=== PATIENT | female | born 1975 | race Caucasian/White ===

== ENCOUNTER 2021-05-07 08:59 | Emergency (ER) | payer BC, SELFPAY ==
[2021-05-07 09:01] VITALS: BP 113/80; PULSE 88; RESP 18; TEMP 37.1; O2SAT 96; BMI 29.9
--- NOTE | 2021-05-07 09:28 | XR_ITS ---
PROCEDURE: XR CHEST PORTABLE CLINICAL HISTORY: rhonchi in the right lower lung COMPARISON: No exams were available for comparison FINDINGS: The cardiomediastinal silhouette and pulmonary vascularity are within normal limits. In the right upper lobe there is a faint nodular opacity measuring 15 x 10 mm. Possibly related to summation artifact from the overlying rib and scapula. In the left lower lung zone laterally there is a wedge-shaped area of increased density asymmetric compared to the right side and may represent an area of pneumonia. This also may in part be due to summation artifact. Upright PA and lateral chest may provide further evaluation. No acute bony abnormalities. IMPRESSION: Possible right upper lobe nodule and left lower lobe area of consolidation versus summation artifacts. Upright PA and lateral chest may provide further evaluation Dictated by: Reza Franz MD 05/07/2021 10:27 Reza Franz MD in [place] 05/07/2021 10:27
[2021-05-07 09:30] VITALS: BP 112/64; PULSE 89; RESP 15; O2SAT 95
--- NOTE | 2021-05-07 09:35 | HMH.EDGENADL ---
ED Disposition Clinical Impression: COVID-19 Pneumonia Qualifiers: Laterality: bilateral Lung location: unspecified part of lung Disposition: Home, Self-Care Condition on Discharge: Good Instructions: Pneumonia-Adult Additional Instructions: Please take your antibiotics as prescribed. If your condition worsens or any other concerns for your health arise, please return to the nearest emergency department for reassessment. Otherwise, please follow-up with your primary care doctor on Monday. Prescriptions: Amoxicillin/Potassium Clav [Augmentin 875-125 Tablet] 1 tab PO Q12H #14 tab Doxycycline Monohydrate [Doxycycline Mcdonald 100mg Tab] 100 mg PO Q12 7 Days #14 tab Ondansetron [Zofran 4mg ODT] 4 mg PO TIDP PRN 3 Days #9 tab PRN Reason: Nausea Referrals: Dyllan Travis [Primary Care Provider] - - Critical Care Critical Care Time: No Attestation: On , the high probability of a clinically significant, sudden or life threatening deterioration of the following system(s) required my full and direct attention, intervention and personal management. The time I documented below is in addition to time spent performing reported procedures but includes the following listed in this critical care notation. Medical Decision Making - Jacky Inquiry Pt receiving controlled substance: No Vital Signs: 05/07/21 09:01 05/07/21 09:30 05/07/21 10:30 Temperature 98.7 F Temperature Source Oral Pulse Rate 89 92 H Pulse Rate [Right Radial] 88 Respiratory Rate 18 15 20 Blood Pressure 112/64 110/73 Blood Pressure [Right Arm] 113/80 Blood Pressure Mean 80 83 Blood Pressure Mean [Right Arm] 91 Blood Pressure Source [Right Arm] Automatic Cuff Blood Pressure Position [Right Arm] Sitting 02 Sat by Pulse Oximetry 96 95 93 L Oxygen Delivery Method Room Air - Lab Data Lab Results 05/07/21 09:49: WBC 4.4 L, RBC 5.14, Hgb 15.1, Hct 45.7, MCV 89.0, MCH 29.5, MCHC 33.1, RDW 12.3, Plt Count 130 L, MPV 7.9, Neut % (Auto) 79.0, Lymph % (Auto) 15.1, Mcdonald % (Auto) 5.7, Eos % (Auto) 0.0 L, Baso % (Auto) 0.2, Neut # (Auto) 3.4, Lymph # (Auto) 0.7, Mcdonald # (Auto) 0.3, Eos # (Auto) 0.0, Baso # (Auto) 0.0 05/07/21 09:49: Sodium 134 L, Potassium 3.4 L, Chloride 99, Carbon Dioxide 26, Anion Gap 12.4, BUN 9, Creatinine 0.50 L, Estimated Creat Clear 185, Estimated GFR 134, Est GFR ( Amer) 162, Glucose 160 H, Calcium 8.4 05/07/21 09:49: SARS-CoV-2 (PCR) Detected A, Influenza A Untype (PCR) Not detected, Influenza Type B (PCR) Not detected 05/07/21 09:49: Lipase 124 05/07/21 09:57: Urine Color Yellow, Urine Appearance Clear, Urine pH 6.5, Ur Specific Harper 1.010, Urine Protein 2+, Urine Glucose (UA) Negative, Urine Ketones Negative, Urine Blood Trace-i, Urine Nitrate Negative, Urine Bilirubin Negative, Urine Urobilinogen 1.0, Ur Leukocyte Esterase Negative, Urine RBC Occasional, Urine WBC None, Ur Squamous Epith Cells Occasional, Urine Bacteria None Result diagrams: 05/07/21 09:49 05/07/21 09:49 Orders (Tests/Meds): ED MEDICATIONS Discontinued Medications Generic Name Dose Route Start Last Admin Trade Name Freq PRN Reason Stop Dose Admin Belladonna Alkaloids 60 ml 05/07/21 09:31 05/07/21 10:23 Gi Cocktail 60ml Udc PO 05/07/21 09:32 60 ml ONCE ONE Administration Ondansetron HCl 4 mg 05/07/21 09:31 05/07/21 10:16 Ondansetron 4mg/2ml Vial IV 05/07/21 09:32 4 mg ONCE ONE Administration Medical Decision Narrative: Patient is a 45-year-old female presenting with a chief complaint of cough and dyspnea and fever in the setting of exposure to COVID-19. Differential diagnosis includes, but is not limited to, COVID-19 pneumonia, superimposed bacterial infection, pleural effusion,asthma exacerbation, DVT/PE. On initial assessment, patient is hemodynamically stable and nontoxic-appearing. She has appropriate SPO2 saturations on room air. Clinical exam is significant for diffuse crackles with si
[2021-05-07 09:57] LABS: Influenza A, PCR Not Detected (NotDetected); Influenza B, PCR Not Detected (NotDetected)
[2021-05-07 10:01] LABS: Basophils % 0.2 % (0.1-2.0); Hematocrit 45.7 % (37.0-47.0); Hemoglobin 15.1 g/dL (12.2-16.2); Lymphocytes # 0.7 K/mm3 (0.7-4.5); Lymphocytes % 15.1 % (10-50); Mean Corpuscular HGB Conc 33.1 g/dL (31.8-35.4); Mean Corpuscular Hemoglobin 29.5 pg (27.0-31.2); Mean Platelet Volume 7.9 fl (7.4-10.4); Monocytes # 0.3 K/mm3 (0.1-1.0); Monocytes % 5.7 % (1.7-9.3); Neutrophils # 3.4 K/mm3 (1.8-7.8); Platelet Count 130 K/mm3 (142-424); Red Blood Count 5.14 M/mm3 (4.20-5.40); Red Cell Distribution Width 12.3 % (11.5-17.5); White Blood Count 4.4 K/mm3 (4.8-10.8)
[2021-05-07 10:03] LABS: Chloride 99 mmol/L (98-107); Sodium 134 mmol/L (136-145)
[2021-05-07 10:04] LABS: Potassium 3.4 mmoL/L (3.5-5.1)
[2021-05-07 10:06] LABS: Lipase 124 U/L (23-300)
[2021-05-07 10:07] LABS: Anion Gap 12.4 mEq/L (5-15); Blood Urea Nitrogen 9 mg/dl (7-17); Calcium 8.4 mg/dl (8.4-10.2); Carbon Dioxide 26 mmol/L (22.0-30.0); Creatinine Clearance Estimated 185 mL/min (50-200); Estimated Glomerular Filt Rate 134 ml/min (>60); GFR (African American) 162 ML/MIN (>60); Glucose 160 mg/dl (74-100)
[2021-05-07 10:25] LABS: Microscopic, Urine URINE MICROSCOPIC (MICROSCOPIC)
[2021-05-07 10:29] LABS: Appearance,Urine CLEAR (Clear); Bilirubin,Urine Negative (Negative); Blood, Urine TRACE-I (Negative); Color,Urine YELLOW (Yellow); Glucose,Urine (UA) Negative (Negative); Ketones,Urine Negative (Negative); Leukocyte Esterase,Urine Negative (Negative); Nitrate,Urine Negative (Negative); PH,Urine 6.5 (5.0-8.5); Protein,Urine 2+ (Negative)
[2021-05-07 10:30] VITALS: BP 110/73; PULSE 92; RESP 20; O2SAT 93
[2021-05-07 10:39] LABS: Coronavirus 19, PCR Detected (NotDetected)
[2021-05-07 10:40] LABS: RBC,Urine Occasional #/hpf (0-3); Squamous Epithelial Cell,Urine Occasional #/hpf (0-5)
--- NOTE | 2021-05-07 10:51 | PC.NURSE ---
Pt is sitting up in bed resting comfortably. Will continue to monitor.
[2021-05-07 11:00] VITALS: BP 107/70; PULSE 91; O2SAT 93
[2021-05-07 11:20] VITALS: BP 107/70; PULSE 89; RESP 18; TEMP 37.3; O2SAT 100
== END 2021-05-07 11:20 | disposition home or self-care (01) ==
PROVIDERS: Emergency Provider Emergency Medicine; PCP Family Medicine
DX: U07.1 COVID-19 (principal); J12.82 Pneumonia due to coronavirus disease 2019
CPT/HCPCS: 71045; 80048; 81001; 83690; 85025; 99283; C9803; J2405; U0003; U0005

== ENCOUNTER 2021-12-24 11:22 | Emergency (ER) | payer BC, SELFPAY ==
[2021-12-24 11:30] VITALS: BP 129/77; PULSE 63; RESP 16; TEMP 36.7; O2SAT 99; BMI 29.9
--- NOTE | 2021-12-24 11:33 | XR_ITS ---
FINAL REPORT CLINICAL HISTORY: FALL- over her dog FINDINGS: RIGHT SHOULDER: 3 views of the right shoulder were obtained. There is no acute fracture or dislocation. There is mild elevation of the distal clavicle. There is no soft tissue abnormality. IMPRESSION: No acute fracture. Mild elevation of the distal clavicle that may represent mild AC joint separation. Reviewed, Interpreted and Dictated by Gio Inman III, MD Transcribed by Samson Laura Authenticated and [facility]
--- NOTE | 2021-12-24 11:33 | XR_ITS ---
FINAL REPORT CLINICAL HISTORY: FALL- over her dog landed on right side FINDINGS: RIGHT ELBOW 3 views were obtained. There is no acute fracture or dislocation. There is no joint effusion. The joint spaces are intact. There is no soft tissue abnormality. IMPRESSION: No acute process. Reviewed, Interpreted and Dictated by Gio Inman III, MD Transcribed by Samson Laura Authenticated and [facility]
--- NOTE | 2021-12-24 11:33 | XR_ITS ---
FINAL REPORT CLINICAL HISTORY: FALL- over her dog- upper rib pain FINDINGS: 3 views of the right ribs were obtained. There are no rib fractures. There is no pleural fluid collection or pneumothorax. A single view of the chest demonstrates no acute cardiopulmonary process. IMPRESSION: Unremarkable right rib series. Reviewed, Interpreted and Dictated by Gio Inman III, MD Transcribed by Samson Laura Authenticated and [facility]
--- NOTE | 2021-12-24 11:33 | XR_ITS ---
FINAL REPORT CLINICAL HISTORY: FALL- over her dog landed on right side FINDINGS: 2 views of the right humerus were obtained. There is no acute fracture or dislocation. There is mild elevation of the distal clavicle. There is no acute soft tissue abnormality. IMPRESSION: Mild elevation of the distal clavicle may represent mild AC joint separation. Reviewed, Interpreted and Dictated by Gio Inman III, MD Transcribed by Samson Laura Authenticated and [facility]
--- NOTE | 2021-12-24 11:33 | XR_ITS ---
FINAL REPORT CLINICAL HISTORY: FALL-over her dog- right sided pain FINDINGS: 2 views of the right forearm were obtained. There is no acute fracture or dislocation. The joint spaces are intact. There is no soft tissue abnormality. IMPRESSION: No acute abnormality. Reviewed, Interpreted and Dictated by Gio Inman III, MD Transcribed by Samson Laura Authenticated and [facility]
[2021-12-24 11:35] VITALS: BP 129/77; PULSE 63; RESP 16; TEMP 36.7; O2SAT 99; BMI 29.9
--- NOTE | 2021-12-24 12:12 | HMH.EDUTC ---
[facility] [place] Impression: Right arm pain Fall Qualifiers: Encounter type: initial encounter Qualified Code(s): W19.XXXA - Unspecified fall, initial encounter Right shoulder pain Qualifiers: Chronicity: acute Qualified Code(s): M25.511 - Pain in right shoulder Disposition: Home, Self-Care Condition on Discharge: Good Instructions: Contusion, Shoulder Sprain, DI for Shoulder Sprain, DI for Shoulder Pain Additional Instructions: Go home and rest. It would be best if you rested tomorrow too. No heavy lifting. Rest the extremity. Take ibuprofen for pain. I sent in a prescription to your pharmacy. Follow up with Dr. Ramesh (orthopedics). Sometimes there can be fractures that don't show up well on the first set of x-rays. There can be injuries that don't show up well on x-ray also, expecially in a shoulder. So, you should follow up if you continue to have symptoms. I put in a referral but you need to call his office and schedule an appointment. Take the oral medications as directed. The muscle relaxer (cyclobenzaprine--Flexeril) will make you drowsy, so don't drive or operate heavy machinery after taking it. Follow up with your regular doctor. GO TO THE ER FOR ANY WORSENING SYMPTOMS OR CONCERN, ESPECIALLY BOWEL OR BLADDER ISSUES, SADDLE AREA NUMBNESS, FEVER, ETC Prescriptions: Ibuprofen [Ibuprofen 800mg Tablet] 800 mg PO Q8HP PRN #30 tab PRN Reason: Moderate Pain Transmission Status: Received by [id number] Cyclobenzaprine HCl [Cyclobenzaprine 10mg Tab] 10 mg PO BIDP PRN #20 tab PRN Reason: Muscle Spasm Transmission Status: Received by [id number] Referrals: Dyllan Travis [Primary Care Provider] - Time of Disposition: 12:23 Medical Decision Making - Medical Records Medical records reviewed: No: I reviewed the patient's medical records. - Jacky Inquiry Pt receiving controlled substance: No Vital Signs: 12/24/21 11:30 12/24/21 11:35 12/24/21 12:22 Temperature 98.1 F 98.1 F 98.1 F Temperature Source Oral Oral Pulse Rate 63 Pulse Rate [Left Radial] 63 63 Respiratory Rate 16 16 16 Blood Pressure 129/77 Blood Pressure [Left Arm] 129/77 129/77 Blood Pressure Mean [Left Arm] 94 94 Blood Pressure Source [Left Arm] Automatic Cuff Automatic Cuff Blood Pressure Position [Left Arm] Sitting Sitting 02 Sat by Pulse Oximetry 99 99 Oxygen Delivery Method Room Air Room Air Orders (Tests/Meds): ED MEDICATIONS Discontinued Medications Generic Name Dose Route Start Last Admin Trade Name John PRN Reason Stop Dose Admin Ketorolac Tromethamine 60 mg 12/24/21 12:17 12/24/21 12:20 Ketorolac 60mg/2ml Vial IM 12/24/21 12:18 60 mg ONCE ONE Administration - Radiology Data #1 Image(s): Shoulder Image Reviewed: Yes I reviewed the patient's radiology image, Yes I have reviewed radiologist's interpretation [facility] [place] - General Stated complaint: ao fall 12/23, right side rib pain/shoulder Time Seen by Provider: 12/24/21 12:12 Mode of Arrival: Ambulatory Source of Information: Patient Limitations: No Limitations Description of Symptoms (Recalled from Triage Doc. by RN): PATIENT STATES SHE FELL YESTERDAY AFTER TRIPPING OVER HER DOG. SHE STATES SHE LANDED ON HER ELBOW AND C/O PAIN TO RIGHT SHOULDER AND RIGHT RIB AREA HEENT Symptoms (Recalled from RN notes): No Resp Symptoms (Recalled from RN notes): No Skin Symptoms (Recalled from RN notes): No MS Symptoms (Recalled from RN notes): Yes Functional Status (Recalled from RN notes): WNL - History of Present Illness Provider Complaint: She fell yesterday and came down on her left elbow. This caused her shoulder to be jammed up. Now she is having right shoulder and upper arm pain. She denies any chest pain, sob, neck pain, wrist or hand injury and any other injury. - Related Data Previous Rx's Medication Instructions Recorded Amoxicillin/Potassium Clav 1 tab PO Q12H #14 tab
[2021-12-24 12:22] VITALS: BP 129/77; PULSE 63; RESP 16; TEMP 36.7; O2SAT 99
== END 2021-12-24 12:30 | disposition home or self-care (01) ==
PROVIDERS: Emergency Provider Nurse Practitioner Family; PCP Family Medicine
DX: M79.601 Pain in right arm (principal); M25.511 Pain in right shoulder; W19.XXXA Unspecified fall, initial encounter; W54.8XXA Other contact with dog, initial encounter
CPT/HCPCS: 71100; 73030; 73060; 73080; 73090; 96372; 99213; G0463

== ENCOUNTER 2021-12-31 13:06 | Emergency (ER) | payer BC, SELFPAY ==
[2021-12-31 13:16] VITALS: BP 128/57; PULSE 66; RESP 17; TEMP 36.8; O2SAT 97; BMI 29.9
--- NOTE | 2021-12-31 13:23 | HMH.EDUTC ---
[facility] [place]ression: Rib pain on right side Disposition: Still a Patient Condition on Discharge: Fair Referrals: Dyllan Travis [Primary Care Provider] - Time of Disposition: 13:43 Medical Decision Making - Medical Records Medical records reviewed: No: I reviewed the patient's medical records. - Jacky Inquiry Pt receiving controlled substance: No Vital Signs: 12/31/21 13:16 Temperature 98.2 F Temperature Source Oral Pulse Rate [Left Radial] 66 Respiratory Rate 17 Blood Pressure [Right Arm] 128/57 L Blood Pressure Mean [Right Arm] 80 02 Sat by Pulse Oximetry 97 Medical Decision Narrative: She was transferred to the er for further evaluation. [facility] [place] General Stated complaint: back pain ao 12/23/21 Time Seen by Provider: 12/31/21 13:24 Description of Symptoms (Recalled from Triage Doc. by RN): patient comes in with complaints of back pain. patient states that she fell on 12/23. patient was seen hereon the with scans done. patient states that she is not getting any better, and has been unable to get an appoitment with her primary care since the incident HEENT Symptoms (Recalled from RN notes): No Resp Symptoms (Recalled from RN notes): No Skin Symptoms (Recalled from RN notes): No MS Symptoms (Recalled from RN notes): Yes Functional Status (Recalled from RN notes): wnl - History of Present Illness Provider Complaint: She is back with conitued complaints of right sided rib pain and right arm pain since falling on 12/23. - Related Data Previous Rx's Medication Instructions Recorded Amoxicillin/Potassium Clav 1 tab PO Q12H #14 tab 05/07/21 [Augmentin 875-125 Tablet] Doxycycline Monohydrate 100 mg PO Q12 7 Days #14 tab 05/07/21 [Doxycycline Screven 100mg Tab] Ondansetron [Zofran 4mg ODT] 4 mg PO TIDP PRN 3 Days #9 tab 05/07/21 Cyclobenzaprine HCl 10 mg PO BIDP PRN #20 tab 12/24/21 [Cyclobenzaprine 10mg Tab] Ibuprofen [Ibuprofen 800mg 800 mg PO Q8HP PRN #30 tab 12/24/21 Tablet] Allergies Allergy/AdvReac Type Severity Reaction Status Date / Time No Known Allergies Allergy Verified 12/31/21 13:21 - Worker's Comp Is this a Worker's Comp case?: No [facility] History - Hepatitis A Screen Attestation statement:: This patient has been screened for Hepatitis A risk factors. I have reviewed the patient's past medical history: Yes ROS Obtained: Yes All systems reviewed & no additional complaints - Constitutional Constitutional: Denies chills, Denies fever(s) - Eyes Eyes: Denies eye discharge - ENT Ears, Nose, Mouth, and Throat: Denies dizziness, Denies otalgia, Denies sore throat, Denies vertigo/dizziness - Cardiovascular Cardiovascular: Reports as per HPI - Respiratory Respiratory: Denies chest congestion, Reports cough, Denies dyspnea, Denies stridor, Denies wheezing - Gastrointestinal Gastrointestingal: Denies: abdominal pain, diarrhea, nausea, vomiting - Musculoskeletal Musculoskeletal: Reports neck pain Physical Exam - General General appearance: alert, in no apparent distress - Head Head exam: atraumatic, normocephalic, normal inspection - Eye Eye exam: Present: normal appearance, PERRL, EOMI - ENT ENT exam: Present: normal exam, normal oropharynx, mucous membranes moist, TM's normal bilaterally, normal external ear exam - Neck Neck exam: Present: normal inspection, full ROM, trachea midline. Absent: meningismus, lymphadenopathy - Chest Chest inspection: Present: normal inspection, symmetric chest wall rise. Absent: tenderness - Respiratory Respiratory exam: Present: normal lung sounds bilaterally. Absent: respiratory distress - Cardiovascular Cardiovascular exam: Present: regular rate, normal rhythm. Absent: JVD - Abdominal Exam Abdominal exam: Present: soft, normal bowel sounds. Absent: distention, tenderness, guarding - Extremities Exam Extremities exam: Present: normal inspection, full ROM, nor
[2021-12-31 13:46] VITALS: BP 124/80; PULSE 61; RESP 18; TEMP 36.8; O2SAT 98; BMI 29.9
--- NOTE | 2021-12-31 13:53 | XR_ITS ---
FINAL REPORT CLINICAL HISTORY: pain, pt stated that she fell last and the pain in her chest has stayed persistent. The pain is located more on the mid anterior right aspect of the patients chest COMPARISON: Rib x-rays dated December 24, 2021 FINDINGS: Two views of the chest were obtained. The heart size and pulmonary vascularity are within normal limits. The mediastinum is normal. No acute pulmonary abnormality is identified. There is no pneumothorax. The bony thorax is intact. IMPRESSION: No active cardiopulmonary disease. Should symptoms persist CT may be helpful to evaluate for chest wall injury. Reviewed, Interpreted and Dictated by Gio Inman III, MD Transcribed by Samson Laura Authenticated and [facility]
--- NOTE | 2021-12-31 13:53 | PC.NURSE ---
Notified rad of chest xray
--- NOTE | 2021-12-31 13:58 | HMH.EDGENADL ---
ED Disposition Clinical Impression: Acromioclavicular joint separation, type 2 Qualifiers: Encounter type: initial encounter Laterality: right Qualified Code(s): S43.101A - Unspecified dislocation of right acromioclavicular joint, initial encounter Costochondral joint sprain Qualifiers: Encounter type: initial encounter Qualified Code(s): S23.41XA - Sprain of ribs, initial encounter Disposition: Home, Self-Care Condition on Discharge: Good Instructions: DI for Acute Pain -- Adult Additional Instructions: Continue taking ibuprofen for pain. Follow-up with orthopedics, Dr. Ramesh, for right AC joint separation. Referrals: Dyllan Travis [Primary Care Provider] - Jean-Pierre Ramesh MD [Staff Physician] - - Critical Care Critical Care Time: No Attestation: On 12/31/21, the high probability of a clinically significant, sudden or life threatening deterioration of the following system(s) required my full and direct attention, intervention and personal management. The time I documented below is in addition to time spent performing reported procedures but includes the following listed in this critical care notation. Medical Decision Making - Jacky Inquiry Pt receiving controlled substance: No Vital Signs: 12/31/21 13:16 12/31/21 13:46 12/31/21 15:06 Temperature 98.2 F 98.2 F 98.3 F Temperature Source Oral Oral Oral Pulse Rate 74 Pulse Rate [Left Radial] 66 61 Respiratory Rate 17 18 16 Blood Pressure 103/62 L Blood Pressure [Right Arm] 128/57 L 124/80 Blood Pressure Mean [Right Arm] 80 94 Blood Pressure Source Automatic Cuff Blood Pressure Source [Right Arm] Automatic Cuff Blood Pressure Position Sitting Blood Pressure Position [Right Arm] Sitting 02 Sat by Pulse Oximetry 97 98 Oxygen Delivery Method Room Air Room Air - Radiology Data #1 Image(s): Chest Image Reviewed: Yes I reviewed the patient's radiology image Preliminary Findings: Normal/NAD Stable chest. No pneumonia seen. No pneumothorax or hemothorax. No rib fracture seen. Sternum appears normal on lateral chest film. Medical Decision Narrative: Review of reports from her previous x-rays shows that radiologist was concerned about the possibility of a right AC separation. Patient states she was not informed of this. I have made her aware and advised orthopedic follow-up. I feel her chest injury is a chest wall rib cage strain of the costochondral junction. Fractured sternum not suspected. Pt declines sling for her arm. General Adult HPI - General Chief complaint: PAIN Stated complaint: back pain ao 12/23/21 Time Seen by Provider: 12/31/21 13:24 Mode of Arrival: Ambulatory Limitations: No Limitations Description of Symptoms (Recalled from ER Triage Doc. by RN): c/o center chest pain after falling last . pt states that she stepped on her dog and fell hitting her right elbow and shoulder and heard a pop in her chest and since then it has been painful with bending over. Denies any other pain or injuries at this time. - History of Present Illness HPI narrative: Patient states that she fell 1 week ago when she fell over her dog. She landed in her yard on her right elbow. She said all of the force of the blow was on her elbow and it jammed her right shoulder. She also felt a pop in her right anterior chest. She was seen in the urgent treatment center here and had x-rays of her ribs and arm. She says she was told nothing was broken. She now returned to the urgent treatment center today because of persistent discomfort in her right anterior chest in the parasternal area and above her right breast. She says it reminds her of the pain she had when she had pneumonia in the past. She has had a mild cough without fever or sputum production. No hemoptysis. She also has some persistent pain on the top of her right shoulder. 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 No follow-up since h
[2021-12-31 15:06] VITALS: BP 103/62; PULSE 74; RESP 16; TEMP 36.8; O2SAT 98
== END 2021-12-31 15:07 | disposition home or self-care (01) ==
LOC: UTC 13:08 → ER 13:40
PROVIDERS: Emergency Provider Emergency Medicine; PCP Family Medicine
DX: S43.101A Unspecified dislocation of right acromioclavicular joint, initial encounter (principal); S23.41XA Sprain of ribs, initial encounter; R07.2 Precordial pain; M54.2 Cervicalgia; M54.9 Dorsalgia, unspecified; M79.601 Pain in right arm; M25.521 Pain in right elbow; M25.511 Pain in right shoulder; W01.0XXA Fall on same level from slipping, tripping and stumbling without subsequent striking against object, initial encounter
CPT/HCPCS: 71046; 99283

== ENCOUNTER 2022-10-28 14:14 | Emergency (ER) | payer BC, SELFPAY ==
[2022-10-28 14:20] VITALS: BP 136/82; PULSE 64; RESP 20; TEMP 36.4; O2SAT 97; BMI 29.9
[2022-10-28 14:30] LABS: Apearance,Urine Cloudy (Clear); Color,Urine Yellow (Yellow); Glucose,Urine (UA) Negative (Negative); Ketones,Urine Negative (Negative); Protein,Urine 1+ (Negative)
--- NOTE | 2022-10-28 14:30 | EXP.UTC ---
Discharge Plan Disposition Patient Disposition: Home, Self-Care Condition: Good Prescriptions Prescriptions: New cefdinir 300 mg capsule 300 mg PO BID Qty: 20 0RF phenazopyridine [Pyridium] 200 mg tablet 200 mg PO Q8H 2 Days Qty: 6 0RF No Action nitrofurantoin monohyd/m-cryst 100 mg capsule 100 mg PO ONCE doxycycline monohydrate 100 MG tablet 100 mg PO Q12 7 Days Qty: 14 0RF ondansetron 4 MG tablet,disintegrating 4 mg PO TIDP PRN (Reason: Nausea) 3 Days Qty: 9 0RF cyclobenzaprine 10 MG tablet 10 mg PO BIDP PRN (Reason: Muscle Spasm) Qty: 20 0RF ibuprofen 800 MG tablet 800 mg PO Q8HP PRN (Reason: Moderate Pain) Qty: 30 0RF Referrals Follow up/Referrals: Dyllan Travis [Primary Care Provider] - See instructions Activity Restrictions/Add. Instructions Additional Instructions/Restrictions: *Increase fluids. Water not Soda or Tea *Start antibiotic immediately and be sure to take as ordered for the FULL length of time although you should start to see improvement over the next 48 hours *Pyridium as needed Remember this medication will turn your urine . This is normal but it will stain what ever it gets on *You should not use Pyridium for more than 48 hours. If so , follow up with your primary physician to review urine culture and ensure that antibiotic is adequate for infection *Be SURE to follow up anytime for new or worsening symptoms with your family doctor. AND in 48 hours for urine culture results with your family doctor, if you do not have a doctor then you may call back to the [facility] for urine culture results and further treatment. We do recommend that you choose and establish care with a Primary Care Physician. ?AND follow up with them ?in 10-14 days to repeat UA to ensure infection is resolved and blood no longer present *Be sure to let your PCP know that we sent urine cultures from the [facility] so they can follow up to ensure that you area the on the correct antibiotic Call your doctor office and make appointment for 48 hours (2 days from today) ?to follow up and get the results of your urine culture and further treatment Clinical Impressions Clinical Impression: UTI symptoms Instructions Patient Instructions: Phenazopyridine Discharge ED Provider: Gissel Cardenas [facility] [place] General Stated complaint: Possible UTI Time Seen by Provider: 10/28/22 14:30 History of Present Illness Provider Complaint: Patient states that she has been having burning with urination and feeling of urgency and frequency for about 3 days Statse that today she was still having symptoms so she came in to get her urine checked Related Data Home Medications Medication Instructions Recorded Confirmed nitrofurantoin 100 mg PO ONCE 01/04/22 01/04/22 monohydrate/macrocrystals 100 mg capsule Previous Rx's Medication Instructions Recorded doxycycline monohydrate 100 mg 100 mg PO Q12 7 days #14 tabs 05/07/21 tablet ondansetron 4 mg disintegrating 4 mg PO TIDP PRN Nausea 3 days #9 05/07/21 tablet tabs cyclobenzaprine 10 mg tablet 10 mg PO BIDP PRN Muscle Spasm #20 12/24/21 tabs ibuprofen 800 mg tablet 800 mg PO Q8HP PRN Moderate Pain 12/24/21 #30 tabs cefdinir 300 mg capsule 300 mg PO BID #20 caps 10/28/22 phenazopyridine 200 mg tablet 200 mg PO Q8H pain 2 days #6 tabs 10/28/22 (Pyridium) Allergies Allergy/AdvReac Type Severity Reaction Status Date / Time No Known Allergies Allergy Verified 01/04/22 13:50 [facility] Disclaimer: The information contained in this section may have been updated after the patient was seen, as this information can be updated by other users. Social History Smoking Status: Never smoker alcohol intake: never current occupational status: employed Travel in the last 8 weeks: None ROS Obtained: Yes All systems reviewed & no additional complaints except as documented and Yes Systems reviewed as appropriate & no additional complaints except as doc
[2022-10-28 14:31] LABS: Bilirubin,Urine 1+ (Negative); Blood, Urine 1+ (Negative); UTC Leukocyte Esterase,Urine Negative (Negative); UTC Nitrate,Urine Negative (Negative); Urobilinogen,Urine 0.2 EU/dl (0.2)
[2022-10-28 14:37] VITALS: BP 136/82; PULSE 64; RESP 20; TEMP 36.4; O2SAT 97
== END 2022-10-28 14:45 | disposition home or self-care (01) ==
PROVIDERS: Emergency Provider Nurse Practitioner; PCP Family Medicine
DX: R30.0 Dysuria (principal)
CPT/HCPCS: 81003; 87086; 87088; 87186; 99212; 99214; G0463

== ENCOUNTER 2022-12-02 17:03 | Emergency (ER) | payer BC, SELFPAY ==
[2022-12-02 17:10] VITALS: BP 135/65; PULSE 53; RESP 20; TEMP 36.8; O2SAT 100; BMI 29.9
--- NOTE | 2022-12-02 17:10 | EXP.UTC ---
Discharge Plan Disposition Patient Disposition: Home, Self-Care Condition: Good Prescriptions Prescriptions: New mupirocin 2 % ointment 1 applic topical TID 7 Days Qty: 15 0RF amoxicillin-pot clavulanate 875-125 mg Tablet 1 tab PO Q12H Qty: 20 0RF Referrals Follow up/Referrals: Dyllan Travis [Primary Care Provider] - See instructions Activity Restrictions/Add. Instructions Additional Instructions/Restrictions: Keep the wounds clean and dry. Follow up with your regular doctor. Take the antibiotics as directed and apply the topical antibiotics as directed. Make sure you stay in contact with the health department regarding the health of the dog. Watch the puncture wounds for signs of worsening infection, such as worsening redness, drainage, swelling, etc. GO TO THE ER FOR ANY WORSENING SYMPTOMS Clinical Impressions Clinical Impression: Dog bite of right hand Instructions Patient Instructions: Diphtheria, Tetanus, and Pertussis (DTaP) Vaccine, DI for Dog Bite Discharge ED Provider: Fabricio Cruz [facility] General Stated complaint: AO 12/02, dog bite, thumb lac Time Seen by Provider: 12/02/22 17:09 History of Present Illness Provider Complaint: She was bit by a dog while she was grooming it today. She was bit on her right thumb. There are 2 small open wounds there. She states that her tetanus immunization is not up to date. Related Data Previous Rx's Medication Instructions Recorded amoxicillin 875 mg-potassium 1 tab PO Q12H #20 tabs 12/02/22 clavulanate 125 mg tablet mupirocin 2 % topical ointment 1 applic topical TID 7 days #15 12/02/22 grams Allergies Allergy/AdvReac Type Severity Reaction Status Date / Time No Known Allergies Allergy Verified 01/04/22 13:50 [facility] Disclaimer: The information contained in this section may have been updated after the patient was seen, as this information can be updated by other users. Social History Smoking Status: Never smoker alcohol intake: never current occupational status: employed Travel in the last 8 weeks: None ROS Obtained: Yes All systems reviewed & no additional complaints except as documented Constitutional Constitutional: Denies chills and Denies fever(s) Eyes Eyes: Denies eye discharge ENT Ears, Nose, Mouth, and Throat: Denies dizziness, Denies otalgia and Denies sore throat Cardiovascular Cardiovascular: Denies chest pain Respiratory Respiratory: Denies shortness of breath, Denies chest congestion, Denies cough, Denies stridor and Denies wheezing Gastrointestinal Gastrointestingal: Denies nausea or vomiting Musculoskeletal Musculoskeletal: Reports system reviewed and no additional complaints, except as documented and Denies arthralgias Integumentary/Breasts Skin/Breast: Reports as per HPI Neurologic Neurologic: Denies dizziness and Denies paresthesias Allergic/Immunologic Allergic/Immunologic: Denies wheezing Physical Exam General General appearance: alert and in no apparent distress Head Head exam: atraumatic, normocephalic and normal inspection Eye Eye exam: Present normal appearance, PERRL and EOMI ENT ENT exam: Present normal exam, normal oropharynx, mucous membranes moist, TM's normal bilaterally and normal external ear exam Neck Neck exam: Present normal inspection, full ROM and trachea midline; Absent meningismus or lymphadenopathy Chest Chest inspection: Present normal inspection and symmetric chest wall rise; Absent tenderness Respiratory Respiratory exam: Present normal lung sounds bilaterally; Absent respiratory distress Cardiovascular Cardiovascular exam: Present regular rate and normal rhythm; Absent JVD Abdominal Exam Abdominal exam: Present soft and normal bowel sounds; Absent distention, tenderness or guarding Extremities Exam Extremities exam: Present normal inspection, full ROM and normal capillary refill; Absent calf tendernes
[2022-12-02 17:30] VITALS: BP 135/65; PULSE 53; RESP 20; TEMP 36.8; O2SAT 100
== END 2022-12-02 17:35 | disposition home or self-care (01) ==
PROVIDERS: Emergency Provider Nurse Practitioner Family; PCP Family Medicine
DX: S61.011A Laceration without foreign body of right thumb without damage to nail, initial encounter (principal); Z23 Encounter for immunization; W54.0XXA Bitten by dog, initial encounter
CPT/HCPCS: 90471; 90715; 96372; 99212; 99214; G0463

== ENCOUNTER 2023-01-09 13:23 | Emergency (ER) | payer BC, SELFPAY ==
[2023-01-09 13:24] VITALS: BP 122/73; PULSE 62; RESP 19; TEMP 36.8; O2SAT 99; BMI 30.2
--- NOTE | 2023-01-09 13:34 | XR_ITS ---
FINAL REPORT CLINICAL HISTORY: Acute right foot pain after fall COMPARISON: None FINDINGS: RIGHT FOOT: Three views of the right foot were obtained. There is no acute fracture or dislocation. The joint spaces are intact. There is no soft tissue abnormality. IMPRESSION: No acute bony abnormality. Reviewed, Interpreted and Dictated by Gio Inman III, MD Transcribed by Lacy Bass Authenticated and [facility]
--- NOTE | 2023-01-09 13:34 | XR_ITS ---
FINAL REPORT CLINICAL HISTORY: Acute right ankle pain after fall COMPARISON: None FINDINGS: LEFT ANKLE: Three views of the left ankle were obtained. There is no acute fracture or dislocation. Mild degenerative changes. Ankle mortise is intact. There is soft tissue swelling. IMPRESSION: Soft tissue swelling without acute bony abnormality. Reviewed, Interpreted and Dictated by Gio Inman III, MD Transcribed by Lacy Bass Authenticated and [facility]
--- NOTE | 2023-01-09 13:34 | XR_ITS ---
FINAL REPORT CLINICAL HISTORY: Acute left knee pain after fall COMPARISON: none FINDINGS: LEFT KNEE: Three views of the left knee were obtained. There is no acute fracture or dislocation. Visualized joint spaces are normally aligned. There is no joint effusion. Soft tissues are unremarkable. IMPRESSION: No acute bony abnormality. Reviewed, Interpreted and Dictated by Gio Inman III, MD Transcribed by Lacy Bass Authenticated and [facility]
--- NOTE | 2023-01-09 14:01 | EXP.UTC ---
Discharge Plan Disposition Patient Disposition: Home, Self-Care Condition: Good Prescriptions Prescriptions: New ibuprofen [IBU] 800 mg tablet 800 mg PO Q8HP PRN (Reason: Moderate Pain) Qty: 30 0RF No Action mupirocin 2 % ointment 1 applic topical TID 7 Days Qty: 15 0RF amoxicillin-pot clavulanate 875-125 mg Tablet 1 tab PO Q12H Qty: 20 0RF Referrals Follow up/Referrals: Juan Daniel Torres JR, MD [Physician] - See instructions Dyllan Travis [Primary Care Provider] - See instructions Activity Restrictions/Add. Instructions Additional Instructions/Restrictions: Rest the extremity, apply ice for 15 minutes as tolerated three or four times per day, Wear the alley wrap for compression, Elevate the extremity as tolerated while you are resting. Take ibuprofen for pain. I sent in a prescription to your pharmacy. Follow up with Dr. Torres (podiatry). Sometimes there can be fractures that don't show up well on the first set of x-rays. So, you should follow up if you continue to have symptoms. I put in a referral but you need to call her office and schedule an appointment. Follow up with your regular doctor. GO TO THE ER FOR ANY WORSENING SYMPTOMS Clinical Impressions Clinical Impression: Left knee pain, Ankle pain, right, Foot pain, right Instructions Patient Instructions: Ankle Sprain, DI for Knee Sprain, DI for Ankle Sprain Discharge ED Provider: Fabricio Cruz [facility] HPI General Stated complaint: Fall@home 01/07 RT ankle pain LT knee pain Mode of Arrival: Ambulatory Source of Information: Patient Limitations: No Limitations Time Seen by Provider: 01/09/23 13:58 HEENT Symptoms (Recalled from RN notes): No Resp Symptoms (Recalled from RN notes): No Skin Symptoms (Recalled from RN notes): No MS Symptoms (Recalled from RN notes): Yes Functional Status (Recalled from RN notes): wnl History of Present Illness Provider Complaint: Patient reports falling on 01/07 and injuring her right foot/ankle and left knee. Related Data Previous Rx's Medication Instructions Recorded amoxicillin 875 mg-potassium 1 tab PO Q12H #20 tabs 12/02/22 clavulanate 125 mg tablet mupirocin 2 % topical ointment 1 applic topical TID 7 days #15 12/02/22 grams ibuprofen 800 mg tablet (IBU) 800 mg PO Q8HP PRN Moderate Pain 01/09/23 #30 tabs Allergies Allergy/AdvReac Type Severity Reaction Status Date / Time No Known Allergies Allergy Verified 01/04/22 13:50 Worker's Comp Is this a Worker's Comp case?: No [facility] Disclaimer: The information contained in this section may have been updated after the patient was seen, as this information can be updated by other users. Social History Smoking Status: Never smoker alcohol intake: never current occupational status: employed Travel in the last 8 weeks: None ROS Obtained: Yes All systems reviewed & no additional complaints except as documented Constitutional Constitutional: Denies chills and Denies fever(s) Eyes Eyes: Denies eye discharge ENT Ears, Nose, Mouth, and Throat: Denies dizziness, Denies otalgia and Denies sore throat Cardiovascular Cardiovascular: Denies chest pain Respiratory Respiratory: Denies shortness of breath, Denies chest congestion, Denies cough, Denies stridor and Denies wheezing Gastrointestinal Gastrointestingal: Denies nausea or vomiting Musculoskeletal Musculoskeletal: Reports as per HPI Integumentary/Breasts Skin/Breast: Denies rash Neurologic Neurologic: Denies dizziness and Denies paresthesias Allergic/Immunologic Allergic/Immunologic: Denies wheezing Physical Exam General General appearance: alert and in no apparent distress Head Head exam: atraumatic, normocephalic and normal inspection Eye Eye exam: Present normal appearance, PERRL and EOMI ENT ENT exam: Present normal exam, normal oropharynx, mucous membranes moist, TM's normal bilaterally and normal external
[2023-01-09 14:42] VITALS: BP 122/73; PULSE 62; RESP 19; TEMP 36.8; O2SAT 99
== END 2023-01-09 14:43 | disposition home or self-care (01) ==
PROVIDERS: Emergency Provider Nurse Practitioner Family; PCP Family Medicine
DX: M25.562 Pain in left knee (principal); M25.571 Pain in right ankle and joints of right foot; W19.XXXA Unspecified fall, initial encounter
CPT/HCPCS: 73562; 73610; 73630; 99212; 99214; G0463

== ENCOUNTER 2024-02-07 16:24 | Emergency (ER) | payer BC, SELFPAY ==
[2024-02-07 16:26] VITALS: BP 157/98; PULSE 78; RESP 18; TEMP 36.5; O2SAT 98; BMI 31.6
--- NOTE | 2024-02-07 16:34 | ED_ITS ---
<Statement entered by Sophia Bryant MD - 02/07/24 19:45> I was consulted by the AAYKA, and we discussed the complexity of problems being addressed. I approved the treatment and management plan for this patient's care in the emergency department, thus performing a substantial portion of the medical decision making. Sophia Bryant MD Discharge Plan Disposition Patient Disposition: Home, Self-Care Condition: Good Prescriptions Prescriptions: No Action mupirocin 2 % ointment 1 applic topical TID 7 Days Qty: 15 0RF amoxicillin-pot clavulanate 875-125 mg Tablet 1 tab PO Q12H Qty: 20 0RF ibuprofen [IBU] 800 mg tablet 800 mg PO Q8HP PRN (Reason: Moderate Pain) Qty: 30 0RF Referrals Follow up/Referrals: Dyllan Travis [Primary Care Provider] - See instructions Activity Restrictions/Add. Instructions Additional Instructions/Restrictions: Please follow-up with your PCP for referral to neurology for more advanced headache evaluation. Return to the ER for any worsening signs or symptoms as needed. Clinical Impressions Clinical Impression: Atypical chest pain Migraine Qualifiers: Migraine type: unspecified Status migrainosus presence: without status migrainosus Intractability: not intractable Qualified Code(s): G43.909 - Migraine, unspecified, not intractable, without status migrainosus Instructions Patient Instructions: DI for Migraine, DI for Atypical Chest Pain Print Language Print Language: Vietnamese Discharge ED Provider: Sophia Bryant General Adult HPI <CHRISTOPHER Sands - Last Filed: 02/07/24 19:10> General Chief complaint: Chest Pain Stated complaint: chest pain Time Seen by Provider: 02/07/24 16:34 Mode of Arrival: Ambulatory Source of Information: Patient Limitations: No Limitations Description of Symptoms (Recalled from ER Triage Doc. by RN): pt states she awoke with chest pain this am. pt states she is having L sided chest pain that is tight in nature, radiates down her L arm, and 7/10. pt also reports tingling in her face and dizziness. History of Present Illness HPI narrative: Patient presents for evaluation of left-sided chest pain that radiates to her back. Patient states she woke this morning feeling off . That is described as a swimming sensation in her head but no focal neurologic deficits. Then progressed to feeling chest tightness and pressure on the left anterior chest that radiated to her left shoulder blade. She denies any recent illness or injury. She does have a history of migraines but has never experienced a like this before. She denies chest pain fever chills hemoptysis hematochezia melena nausea vomit diarrhea. She is not on control and has had a hysterectomy. She is a non-smoker. Related Data Previous Rx's ?Medication ?Instructions ?Recorded amoxicillin 875 mg-potassium 1 tab PO Q12H #20 tabs 12/02/22 clavulanate 125 mg tablet mupirocin 2 % topical ointment 1 applic topical TID 7 days #15 12/02/22 grams ibuprofen 800 mg tablet (IBU) 800 mg PO Q8HP PRN Moderate Pain 01/09/23 #30 tabs Allergies Allergy/AdvReac Type Severity Reaction Status Date / Time No Known Allergies Allergy Verified 02/07/24 16:33 PFS <CHRISTOPHER Sands - Last Filed: 02/07/24 19:10> [facility], [facility] Disclaimer: The information contained in this section may have been updated after the patient was seen, as this information can be updated by other users. Social History Smoking Status: Never smoker alcohol intake: never current occupational status: employed Travel in the last 8 weeks: None <CHRISTOPHER Sands - Last Filed: 02/07/24 19:10> ROS Obtained: Yes Systems reviewed as appropriate & no additional complaints except as documented Physical Exam <CHRISTOPHER Sands - Last Filed: 02/07/24 19:10> General General appearance: alert and in no apparent distress Head Head exam: atraumatic and normocephalic Eye Eye exam: Present normal appearance, PERRL and EOMI ENT ENT exam: Present normal exam, normal oropharynx and mucous membranes moist Neck Neck exam: Present normal inspection and full ROM; Absent tenderness Chest Chest inspection: Present normal inspection and symmetric chest wall rise; Absent tenderness Respiratory Respiratory exam: Present normal lung sounds bilaterally and respiratory distress; Absent wheezes Cardiovascular Cardiovascular exam: Present regular rate and normal rhythm Abdominal Exam Abdominal exam: Present soft and normal bowel sounds; Absent tenderness Back Exam Back exam: Present normal inspection and full ROM; Absent tenderness Neurological Exam Neurological exam: Present alert, oriented X3, CN II-XII intact and normal gait; Absent motor sensory deficit Psychiatric Psychiatric exam: Present normal affect and normal mood Skin Skin exam: Present warm, dry and intact Medical Decision Making <CHRISTOPHER Sands - Last Filed: 02/07/24 19:10> Medical Records Medical records reviewed: Yes I reviewed the patient's medical records. Jacky Inquiry Pt receiving controlled substance: No Vital Signs: 02/07/24 16:26 02/07/24 16:39 02/07/24 17:00 Temperature 97.7 F Temperature Source Oral Pulse Rate 57 L 59 L Pulse Rate [Left] 78 Respiratory Rate 18 12 13 Blood Pressure 145/84 H 128/78 Blood Pressure [Right Arm] 157/98 H Blood Pressure Mean [Right Arm] 117 Blood Pressure Source Blood Pressure Source [Right Arm] Automatic Cuff Blood Pressure Position Blood Pressure Position [Right Arm] Sitting 02 Sat by Pulse Oximetry 98 98 97 Oxygen Delivery Method Room Air 02/07/24 17:11 02/07/24 19:25 Temperature 98.0 F Temperature Source Oral Pulse Rate 72 75 Pulse Rate [Left] Respiratory Rate 12 18 Blood Pressure 154/82 H 150/80 H Blood Pressure [Right Arm] Blood Pressure Mean [Right Arm] Blood Pressure Source Automatic Cuff Blood Pressure Source [Right Arm] Blood Pressure Position Supine Blood Pressure Position [Right Arm] 02 Sat by Pulse Oximetry 100 Oxygen Delivery Method Room Air Lab Data Lab results reviewed: Yes I reviewed the patient's lab results. Lab Results 02/07/24 16:38: WBC 7.7, RBC 4.76, Hgb 13.9, Hct 43.6, MCV 91.5, MCH 29.1, MCHC 31.8, RDW 13.7, Plt Count 190, MPV 8.4, Neut % (Auto) 64.0, Lymph % (Auto) 27.9, Callahan % (Auto) 5.9, Eos % (Auto) 1.4, Baso % (Auto) 0.8, Neut # (Auto) 5.0, Lymph # (Auto) 2.2, Callahan # (Auto) 0.5, Eos # (Auto) 0.1, Baso # (Auto) 0.1, Sodium 139, Potassium 3.8, Chloride 107, Carbon Dioxide 28, Anion Gap 7.8, BUN 12, Creatinine 0.70, Estimated Creat Clear 135, Estimated GFR 90, Est GFR ( Amer) 109, Glucose 102 H, Calcium 9.1, Total Bilirubin 0.4, AST 30, ALT 25, Alkaline Phosphatase 76, Troponin I < 0.01, Total Protein 6.5, Albumin 3.9, Globulin 2.6, Albumin/Globulin Ratio 1.5, TSH 0.58, Free T4 Index 1.9 L, Thyroxine (T4) 6.1, T3 Uptake 31 02/07/24 16:38 02/07/24 16:38 Orders (Tests/Meds): ED MEDICATIONS Discontinued Medications Generic Name Dose Route Start Last Admin Trade Name Freq PRN Reason Stop Dose Admin Acetaminophen 1,000 mg 02/07/24 16:37 02/07/24 16:50 Acetaminophen 1,000mg/100ml Vial IV 02/07/24 16:38 1,000 mg ONCE ONE Administration Dexamethasone Sodium Phosphate 10 mg 02/07/24 16:37 02/07/24 18:36 Dexamethasone 4mg/Ml 5ml Mdv IV 02/07/24 16:38 10 mg ONCE ONE Administration Diphenhydramine HCl 50 mg 02/07/24 16:45 02/07/24 17:01 Diphenhydramine 50mg/Ml Vial IV 02/07/24 16:46 50 mg ONCE ONE Administration Iopamidol 190 ml 02/07/24 17:45 02/07/24 17:47 Iopamidol-370 (76%);100ml Bottle IV 02/07/24 17:46 190 ml ONCE ONE Administration Ketorolac Tromethamine 15 mg 02/07/24 16:45 02/07/24 17:16 Ketorolac 30mg/Ml Vial IV 02/07/24 16:46 15 mg ONCE ONE Administration Methocarbamol 500 mg 02/07/24 16:45 02/07/24 17:03 Methocarbamol 500mg Tablet PO 02/07/24 16:46 500 mg ONCE ONE Administration Ondansetron HCl 4 mg 02/07/24 16:37 02/07/24 16:51 Ondansetron 4mg/2ml Vial IV 02/07/24 16:38 4 mg ONCE ONE Administration Prochlorperazine Edisylate 10 mg 02/07/24 16:45 02/07/24 18:06 Prochlorperazine 10mg/2ml Vial IV 02/07/24 16:46 Not Given ONCE ONE Sodium Chloride 10 ml 02/07/24 17:45 02/07/24 17:47 Sodium Chloride 0.9% 10ml Syr (Rad Only) IV 02/07/24 17:46 10 ml ONCE ONE Administration Sodium Chloride 50 ml 02/07/24 17:45 02/07/24 17:47 0.9 % Sodium Chloride 50 Ml Vial IV 02/07/24 17:46 50 ml ONCE ONE Administration Sodium Chloride 50 ml 02/07/24 17:45 02/07/24 17:47 0.9 % Sodium Chloride 50 Ml Vial IV 02/07/24 17:46 50 ml ONCE ONE Administration ORDERS Category Date Time Status CT angio chest - dissection Stat Cat Scan 02/07/24 16:[address] angio head Stat Cat Scan 02/07/24 16:[address] angio neck Stat Cat Scan 02/07/24 16:37 Completed CBC w/Auto Diff [Complete Blood Count Auto Diff] Stat Lab 02/07/24 16:38 Completed CMP [Comprehensive Metabolic Panel] Stat Lab 02/07/24 16:38 Completed Thyroid Panel Stat Lab 02/07/24 16:38 Completed Trop I [Troponin I] Stat Lab 02/07/24 16:38 Completed Troponin I Q3H Lab 02/07/24 19:45 Ordered Troponin I Q3H Lab 02/07/24 22:45 Ordered Medical Decision Narrative: In summary patient is a 48-year-old female who presents to the emergency department for evaluation of chest pain and paresthesia. Patient is hemodynamically stable upon arrival, afebrile. Physical exam is remarkable for a Glascow coma score 15 with no focal neurologic deficits or findings, cranial nerves II through XII are intact grossly to exam, breath sounds are clear and equal bilaterally to the bases with adventitious sounds, chest pain is not reproducible on physical exam and her heart sounds are normal and bedside EKG shows sinus rhythm. Differential diagnosis includes complex migraine versus dissection versus PE etc. Initial workup will be conducted with hematologic labs CTA of the head neck and chest. Initial interventions include crystalloid bolus Tyleno and migraine cocktail. l initial workup reviewed by me shows that her hematologic labs are nonactionable and my informal interpretation of her imaging shows no acute processes prior to radiology read. Upon repeat evaluation patient had a paradoxical panic reaction after administration of Benadryl however she recovered without intervention while we were at the bedside. Given this patient was reassessed and she now has had resolution of her chest pain and paresthesias and headache symptoms. Given this we have essentially ruled out any serious or life-threatening conditions and she is appropriate for discharge with recommendations to follow-up with her PCP for referral to to neurology for further complex headache workup. <Sophia Bryant MD - Last Filed: 02/07/24 19:45> Vital Signs: 02/07/24 16:26 02/07/24 16:39 02/07/24 17:00 Temperature 97.7 F Temperature Source Oral Pulse Rate 57 L 59 L Pulse Rate [Left] 78 Respiratory Rate 18 12 13 Blood Pressure 145/84 H 128/78 Blood Pressure [Right Arm] 157/98 H Blood Pressure Mean [Right Arm] 117 Blood Pressure Source Blood Pressure Source [Right Arm] Automatic Cuff Blood Pressure Position Blood Pressure Position [Right Arm] Sitting 02 Sat by Pulse Oximetry 98 98 97 Oxygen Delivery Method Room Air 02/07/24 17:11 02/07/24 19:25 Temperature 98.0 F Temperature Source Oral Pulse Rate 72 75 Pulse Rate [Left] Respiratory Rate 12 18 Blood Pressure 154/82 H 150/80 H Blood Pressure [Right Arm] Blood Pressure Mean [Right Arm] Blood Pressure Source Automatic Cuff Blood Pressure Source [Right Arm] Blood Pressure Position Supine Blood Pressure Position [Right Arm] 02 Sat by Pulse Oximetry 100 Oxygen Delivery Method Room Air Lab Data Lab Results 02/07/24 16:38: WBC 7.7, RBC 4.76, Hgb 13.9, Hct 43.6, MCV 91.5, MCH 29.1, MCHC 31.8, RDW 13.7, Plt Count 190, MPV 8.4, Neut % (Auto) 64.0, Lymph % (Auto) 27.9, Callahan % (Auto) 5.9, Eos % (Auto) 1.4, Baso % (Auto) 0.8, Neut # (Auto) 5.0, Lymph # (Auto) 2.2, Callahan # (Auto) 0.5, Eos # (Auto) 0.1, Baso # (Auto) 0.1, Sodium 139, Potassium 3.8, Chloride 107, Carbon Dioxide 28, Anion Gap 7.8, BUN 12, Creatinine 0.70, Estimated Creat Clear 135, Estimated GFR 90, Est GFR ( Amer) 109, Glucose 102 H, Calcium 9.1, Total Bilirubin 0.4, AST 30, ALT 25, Alkaline Phosphatase 76, Troponin I < 0.01, Total Protein 6.5, Albumin 3.9, Globulin 2.6, Albumin/Globulin Ratio 1.5, TSH 0.58, Free T4 Index 1.9 L, Thyroxine (T4) 6.1, T3 Uptake 31 Orders (Tests/Meds): ED MEDICATIONS Discontinued Medications Generic Name Dose Route Start Last Admin Trade Name Sulaimanq PRN Reason Stop Dose Admin Acetaminophen 1,000 mg 02/07/24 16:37 02/07/24 16:50 Acetaminophen 1,000mg/100ml Vial IV 02/07/24 16:38 1,000 mg ONCE ONE Administration Dexamethasone Sodium Phosphate 10 mg 02/07/24 16:37 02/07/24 18:36 Dexamethasone 4mg/Ml 5ml Mdv IV 02/07/24 16:38 10 mg ONCE ONE Administration Diphenhydramine HCl 50 mg 02/07/24 16:45 02/07/24 17:01 Diphenhydramine 50mg/Ml Vial IV 02/07/24 16:46 50 mg ONCE ONE Administration Iopamidol 190 ml 02/07/24 17:45 02/07/24 17:47 Iopamidol-370 (76%);100ml Bottle IV 02/07/24 17:46 190 ml ONCE ONE Administration Ketorolac Tromethamine 15 mg 02/07/24 16:45 02/07/24 17:16 Ketorolac 30mg/Ml Vial IV 02/07/24 16:46 15 mg ONCE ONE Administration Methocarbamol 500 mg 02/07/24 16:45 02/07/24 17:03 Methocarbamol 500mg Tablet PO 02/07/24 16:46 500 mg ONCE ONE Administration Ondansetron HCl 4 mg 02/07/24 16:37 02/07/24 16:51 Ondansetron 4mg/2ml Vial IV 02/07/24 16:38 4 mg ONCE ONE Administration Prochlorperazine Edisylate 10 mg 02/07/24 16:45 02/07/24 18:06 Prochlorperazine 10mg/2ml Vial IV 02/07/24 16:46 Not Given ONCE ONE Sodium Chloride 10 ml 02/07/24 17:45 02/07/24 17:47 Sodium Chloride 0.9% 10ml Syr (Rad Only) IV 02/07/24 17:46 10 ml ONCE ONE Administration Sodium Chloride 50 ml 02/07/24 17:45 02/07/24 17:47 0.9 % Sodium Chloride 50 Ml Vial IV 02/07/24 17:46 50 ml ONCE ONE Administration Sodium Chloride 50 ml 02/07/24 17:45 02/07/24 17:47 0.9 % Sodium Chloride 50 Ml Vial IV 02/07/24 17:46 50 ml ONCE ONE Administration ORDERS Category Date Time Status CT angio chest - dissection Stat Cat Scan 02/07/24 16:[address] angio head Stat Cat Scan 02/07/24 16:[address] angio neck Stat Cat Scan 02/07/24 16:37 Completed CBC w/Auto Diff [Complete Blood Count Auto Diff] Stat Lab 02/07/24 16:38 Completed CMP [Comprehensive Metabolic Panel] Stat Lab 02/07/24 16:38 Completed Thyroid Panel Stat Lab 02/07/24 16:38 Completed Trop I [Troponin I] Stat Lab 02/07/24 16:38 Completed Troponin I Q3H Lab 02/07/24 19:45 Ordered Troponin I Q3H Lab 02/07/24 22:45 Ordered Medical Decision Narrative: In summary patient is a 48-year-old female who presents to the emergency department for evaluation of chest pain and paresthesia. Patient is hemodynamically stable upon arrival, afebrile. Physical exam is remarkable for a Glascow coma score 15 with no focal neurologic deficits or findings, cranial nerves II through XII are intact grossly to exam, breath sounds are clear and equal bilaterally to the bases with adventitious sounds, chest pain is not reproducible on physical exam and her heart sounds are normal and bedside EKG shows sinus rhythm. Differential diagnosis includes complex migraine versus dissection versus PE etc. Initial workup will be conducted with hematologic labs CTA of the head neck and chest. Initial interventions include crystalloid bolus Tyleno and migraine cocktail. l initial workup reviewed by me shows that her hematologic labs are nonactionable and my informal interpretation of her imaging shows no acute processes prior to radiology read. Upon repeat evaluation patient had a paradoxical panic reaction after administration of Benadryl however she recovered without intervention while we were at the bedside. No findings of allergic reaction or anaphylaxis. Given this patient was reassessed and she now has had resolution of her chest pain and paresthesias and headache symptoms. Given this we have essentially ruled out any serious or life-threatening conditions and she is appropriate for discharge with recommendations to follow-up with her PCP for referral to to neurology for further complex headache workup. Critical Care <CHRISTOPHER Sands - Last Filed: 02/07/24 19:10> Critical Care Time Critical Care Time: No
--- NOTE | 2024-02-07 16:37 | CT_ITS ---
PROCEDURE INFORMATION: Exam: CTA Neck With Contrast Exam date and time: 02/07/2024 5:39 PM Age: 48 years old Clinical indication: Pain; Headache; Additional info: Left-sided headache TECHNIQUE: Imaging protocol: Computed tomographic angiography of the neck with contrast. Exam focused on the cervical segments of the vasculature. 3D rendering (Not supervised by radiologist): MIP and/or 3D reconstructed images were created by the technologist. Radiation optimization: All CT scans at this facility use at least one of these dose optimization techniques: automated exposure control; mA and/or kV adjustment per patient size (includes targeted exams where dose is matched to clinical indication); or iterative reconstruction. Contrast material: ISOVUE; Contrast volume: 100 ml; Contrast route: INTRAVENOUS (IV); COMPARISON: CT ANGIO HEAD 02/07/2024 5:39 PM FINDINGS: Right common carotid artery: No stenosis. No dissection or occlusion. Right internal carotid artery: No stenosis of the extracranial segment. No dissection or occlusion. Right external carotid artery: No occlusion or stenosis of the origin. Left common carotid artery: No stenosis. No dissection or occlusion. Left internal carotid artery: No stenosis of the extracranial segment. No dissection or occlusion. Left external carotid artery: No occlusion or stenosis of the origin. Right vertebral artery: No stenosis. No dissection or occlusion. Left vertebral artery: No stenosis. No dissection or occlusion. Thyroid: Heterogeneous multinodular left thyroid gland. Soft tissues: Normal. No significant soft tissue swelling. Bones/joints: No acute fracture. IMPRESSION: 1. No stenosis. No acute dissection. 2. Heterogeneous multinodular left thyroid gland. Recommend correlation with ultrasound. REFERENCES: NASCET CRITERIA. The degree of stenosis in the cervical segment of the internal carotid artery is based on NASCET criteria. Normal is no stenosis. Mild is less than 50% stenosis. Moderate is 50-69% stenosis. Severe is 70% to 99% stenosis. Total occlusion is no detectable patent lumen.
--- NOTE | 2024-02-07 16:37 | CT_ITS ---
PROCEDURE INFORMATION: Exam: CTA Head With Contrast, Arteriography Exam date and time: 02/07/2024 5:39 PM Age: 48 years old Clinical indication: Pain; Headache; Additional info: Left-sided headache TECHNIQUE: Imaging protocol: Computed tomographic angiography of the head with contrast. Exam focused on the arteries. 3D rendering (Not supervised by radiologist): MIP and/or 3D reconstructed images were created by the technologist. Radiation optimization: All CT scans at this facility use at least one of these dose optimization techniques: automated exposure control; mA and/or kV adjustment per patient size (includes targeted exams where dose is matched to clinical indication); or iterative reconstruction. Contrast material: ISOVUE; Contrast volume: 100 ml; Contrast route: INTRAVENOUS (IV); COMPARISON: CT ANGIO NECK 02/07/2024 5:39 PM FINDINGS: ANTERIOR CIRCULATION: Right internal carotid artery: Intracranial segment is patent with no significant stenosis. No aneurysm. Right middle cerebral artery: No occlusion or significant stenosis. No aneurysm. Right anterior cerebral artery: No occlusion or significant stenosis. No aneurysm. Left internal carotid artery: Intracranial segment is patent with no significant stenosis. No aneurysm. Left middle cerebral artery: No occlusion or significant stenosis. No aneurysm. Left anterior cerebral artery: No occlusion or significant stenosis. No aneurysm. POSTERIOR CIRCULATION: Right vertebral artery: No occlusion or significant stenosis. No aneurysm. Left vertebral artery: No occlusion or significant stenosis. No aneurysm. Basilar artery: No occlusion or significant stenosis. No aneurysm. Right posterior cerebral artery: No occlusion or significant stenosis. No aneurysm. Left posterior cerebral artery: No occlusion or significant stenosis. No aneurysm. Brain: No definite mass, mass effect, or midline shift. Cerebral ventricles: No ventriculomegaly. Bones/joints: Unremarkable. No acute fracture. Soft tissues: Unremarkable. IMPRESSION: No stenosis or aneurysm.
--- NOTE | 2024-02-07 16:37 | CT_ITS ---
PROCEDURE INFORMATION: Exam: CTA Chest With Contrast Exam date and time: 02/07/2024 5:43 PM Age: 48 years old Clinical indication: Pain; Chest pressure; Additional info: Chest pain radiating to the back TECHNIQUE: Imaging protocol: Computed tomographic angiography of the chest with contrast. Exam focused on the arteries. 3D rendering (Not supervised by radiologist): MIP and/or 3D reconstructed images were created by the technologist. Radiation optimization: All CT scans at this facility use at least one of these dose optimization techniques: automated exposure control; mA and/or kV adjustment per patient size (includes targeted exams where dose is matched to clinical indication); or iterative reconstruction. Contrast material: ISOVUE; Contrast volume: 90 ml; Contrast route: INTRAVENOUS (IV); COMPARISON: CR XR CHEST 2V 31/12/2021 14:06 FINDINGS: Pulmonary arteries: No pulmonary emboli. Aorta: No aortic dissection. Thyroid: Thyroid nodules measuring up to 2 cm. Lungs: Patchy posterior atelectasis. Pleural spaces: Unremarkable. No pneumothorax. No pleural effusion. Heart: Unremarkable. No cardiomegaly. No pericardial effusion. Lymph nodes: Unremarkable. No enlarged lymph nodes. Kidneys and ureters: Low attenuation renal lesions measuring up to 4 mm in diameter are incompletely characterized, but are likely cysts. No followup imaging is warranted. Bones/joints: Unremarkable. No acute fracture. Soft tissues: Unremarkable. Other findings: Stigmata of old granulomatous disease. IMPRESSION: 1. No pulmonary emboli. 2. No aortic dissection. 3. Thyroid nodules measuring up to 2 cm. Not previously performed, follow-up ultrasound is recommended. COMMENTS: 1. Consistent with the [employer]'s Incidental Findings Committee white paper (J Am Mikaela Radiol 2018): Any incidental renal lesion less than 1 cm or classified as too small to characterize, or any incidental cystic renal lesion characterized as simple-appearing, is likely benign. No follow-up imaging is recommended for these lesions per consensus recommendations based on imaging criteria. 2. Consistent with the [employer]'s Incidental Findings Committee white paper (J Am Mikaela Radiol 2015): In patients aged 35 years and older with an incidental thyroid nodule equal to or greater than 1.[address], MRI or extrathyroidal US, further evaluation with dedicated thyroid US is recommended for patients with normal life expectancy and without comorbidities. For smaller nodules without suspicious features, no further evaluation or follow up is recommended.
[2024-02-07 16:39] VITALS: BP 145/84; PULSE 57; RESP 12; O2SAT 98
[2024-02-07 16:49] LABS: Basophils # 0.1 K/mm3 (0-0.2); Basophils % 0.8 % (0.1-2.0); Eosinophils # 0.1 K/mm3 (0.0-0.4); Eosinophils % 1.4 % (0.1-12.0); Hematocrit 43.6 % (37.0-47.0); Hemoglobin 13.9 g/dL (12.2-16.2); Lymphocytes # 2.2 K/mm3 (0.7-4.5); Lymphocytes % 27.9 % (10-50); Mean Corpuscular HGB Conc 31.8 g/dL (31.8-35.4); Mean Corpuscular Hemoglobin 29.1 pg (27.0-31.2); Mean Corpuscular Volume 91.5 fl (81-99); Mean Platelet Volume 8.4 fl (7.4-10.4); Monocytes # 0.5 K/mm3 (0.1-1.0); Monocytes % 5.9 % (1.7-9.3); Platelet Count 190 K/mm3 (142-424); Red Blood Count 4.76 M/mm3 (4.20-5.40); Red Cell Distribution Width 13.7 % (11.5-17.5); White Blood Count 7.7 K/mm3 (4.8-10.8)
[2024-02-07] MEDS: ACETAMINOPHEN 1,000MG/100ML VIAL 1000 MG IV (16:50)
[2024-02-07] MEDS: ONDANSETRON 4MG/2ML VIAL 4 MG IV (16:51)
[2024-02-07 16:58] LABS: Alanine Aminotransferase 25 U/L (12-78); Albumin Level 3.9 g/dl (3.5-5.0); Albumin/Globulin Ratio 1.5 (1.1-1.8); Alkaline Phosphatase 76 U/L (38-126); Anion Gap 7.8 mEq/L (5-15); Aspartate Amino Transferase 30 U/L (14-36); Bilirubin,Total 0.4 mg/dl (0.2-1.3); Blood Urea Nitrogen 12 mg/dl (7-17); Calcium 9.1 mg/dl (8.4-10.2); Carbon Dioxide 28 mmol/L (22.0-30.0); Chloride 107 mmol/L (98-107); Creatinine Clearance Estimated 135 mL/min (50-200); Estimated Glomerular Filt Rate 90 ml/min (>60); GFR (African American) 109 ML/MIN (>60); Globulin 2.6 g/dL (1.3-3.2); Glucose 102 mg/dl (74-100); Potassium 3.8 mmoL/L (3.5-5.1); Sodium 139 mmol/L (136-145); Total Protein,Serum 6.5 g/dl (6.3-8.2)
[2024-02-07 17:00] VITALS: BP 128/78; PULSE 59; RESP 13; O2SAT 97
[2024-02-07] MEDS: diphenhydrAMINE 50MG/ML VIAL 50 MG IV (17:01)
[2024-02-07] MEDS: METHOCARBAMOL 500MG TABLET 500 MG PO (17:03)
--- NOTE | 2024-02-07 17:08 | ECG_ITS ---
APPROVED REPORT Exam: Resting ECG HR:91 bpm ECG Measurements Heart Rate 91 AXES PA 136 P 64 QRSd 80 QRS 89 QT 366 T 12 QTc 414 Conclusion SINUS RHYTHM LOW QRS VOLTAGE IN PRECORDIAL LEADS [QRS DEFLECTION < 1.0 mV IN CHEST LEADS] BORDERLINE ECG Isolated T wave inversion in lead III, no STEMI Electronically signed by : BRENDAN KOEHLER, 02/07/2024 23:51:31
[2024-02-07 17:11] VITALS: BP 154/82; PULSE 72; RESP 12; O2SAT 100
[2024-02-07 17:11] LABS: Troponin I < 0.01 ng/ml (0.00-0.034)
[2024-02-07] MEDS: KETOROLAC 30MG/ML VIAL 15 MG IV (17:16)
[2024-02-07 17:26] LABS: Free Thyroxine Index 1.9 ug/dL (5.93-13.13); T4 (Thyroxine) 6.1 ug/dl (5.53-11.0); Triiodothryronine (T3) Uptake 31 % (23.5-40.5)
[2024-02-07 17:40] LABS: Thyroid Stimulating Hormone 0.58 uIU/mL (0.465-4.68)
[2024-02-07] MEDS: IOPAMIDOL-370 (76%);100ML BOTTLE 190 ML IV (17:47)
[2024-02-07] MEDS: SODIUM CHLORIDE 0.9% 10ML SYR (RAD ONLY) 10 ML IV (17:47)
[2024-02-07] MEDS: 0.9 % SODIUM CHLORIDE 50 ML VIAL IV ×2 (17:47)
[2024-02-07] MEDS: DEXAMETHASONE 4MG/ML 5ML MDV 10 MG IV (18:36)
[2024-02-07 19:25] VITALS: BP 150/80; PULSE 75; RESP 18; TEMP 36.7; O2SAT 98
== END 2024-02-07 19:27 | disposition home or self-care (01) ==
PROVIDERS: Physician Assistant; Emergency Provider Emergency Medicine; PCP Family Medicine
DX: R07.89 Other chest pain (principal); G43.909 Migraine, unspecified, not intractable, without status migrainosus
CPT/HCPCS: 70496; 70498; 71275; 80050; 80053; 84436; 84443; 84479; 84484; 85025; 93005; 96374; 96375; 99285; J0131; J1200; J1885; J2405; Q9967

== ENCOUNTER 2024-03-11 12:47 | Outpatient (CLI) | payer BC, SELFPAY ==
--- NOTE | 2024-03-11 12:50 | US_ITS ---
FINAL REPORT TECHNIQUE: Real-time grayscale and color ultrasound of the thyroid was performed. CLINICAL HISTORY: THYROID NODULE COMPARISON: None FINDINGS: The thyroid gland measures 44 x 18 x 10 mm on the right and 44 x 21 x 20 mm on the left. The isthmus measures 3 mm. The parenchyma is unremarkable . Nodules: There is an ovoid nodule in the left lobe measuring 23 x 18 mm, mixed solid and cystic, hypoechoic consistent with a TR 3 nodule. In the isthmus is an isoechoic bilobed nodule measuring 10 x 5 mm, TR 3. Smaller lesions are noted in the left lobe of the thyroid measuring approximately 7 mm, TR 4. IMPRESSION: Dominant 23 mm TR 3 nodule in the left lobe of the thyroid. Recommend follow-up in 1 year per TI-RADS criteria. Reviewed, Interpreted and Dictated by Hiram Estrella MD Transcribed by Lacy Bass Authenticated and [facility]
== END 2024-03-11 23:59 | disposition home or self-care (01) ==
LOC: RAD 12:48
PROVIDERS: PCP Podiatrist; Visit Provider Family Medicine
DX: E04.1 Nontoxic single thyroid nodule (principal)
CPT/HCPCS: 76536